=== PATIENT | male | born 1945 | race Caucasian/White ===

== ENCOUNTER 2021-08-29 09:57 | Inpatient (IN) | payer MEDICARE, SELFPAY ==
[2021-08-29] VITALS (8 sets, daily range): BP systolic 110–146; BP diastolic 51–87; PULSE 74–80; RESP 16–24; TEMP 35.8–36.5; O2SAT 95–100; BMI 29.8
--- NOTE | ~2021-08-29 | CT_ITS ---
EXAMINATION: CT abdomen pelvis wo con DATE: 08/29/2021 11:19 INDICATION: Diarrhea TECHNIQUE: Computed tomography (CT) of the abdomen and pelvis was performed without intravenous contr ast. The dose-length product (DLP) was 1395.18 mGy-cm. Automated exposure control and iterative recon struction technique were employed. COMPARISON: None FINDINGS: Minimal dependent atelectasis is present in the lung bases. There are minimal opacities of the right middle lobe. The heart size is normal. The liver, spleen, pancreas, gallbladder, and adrena l glands are normal. The kidneys are unremarkable. There is calcified atherosclerosis of the aorta an d many of the other arteries. No pathologically enlarged abdominal or pelvic lymph nodes are identifi ed. The appendix is normal. There is no free intraperitoneal gas or evidence of bowel obstruction. Th ere is severe thoracic and lumbar spondylosis. IMPRESSION: 1. No CT correlate for the patient's symptoms. 2. Minimal airspace opacities of the right middle lobe, likely pneumonia. Reviewed, dictated and finalized at location A. NET FINISHER
--- NOTE | ~2021-08-29 | MR_ITS ---
EXAMINATION: MR brain/brain stem wo con DATE: 08/31/2021 14:39 INDICATION: Anasarca correlate. Altered mental status. TECHNIQUE: Magnetic resonance imaging (MRI) of the brain and brainstem was performed without intraven ous contrast. Sequences included sagittal and axial T1-weighted SE, axial diffusion-weighted FS SE, a xial T2*-weighted GRE, axial T2-weighted FLAIR Propeller, and axial T2-weighted Propeller. Apparent d iffusion coefficient (ADC) maps were created. COMPARISON: CT dated 08/29/2021. FINDINGS: Mild generalized atrophy. There are scattered mild periventricular and subcortical white ma tter changes, most likely related to small vessel ischemic disease (microangiopathy). There are focal areas of increased signal on diffusion-weighted sequence with corresponding increase on ADC map, lik adelina a focal subacute or chronic infarct in the right parietal lobe and basal ganglia. No acute infarc tion is identified. No evidence for intracranial hemorrhage. There is a small chronic left frontal lo be infarction. No ventriculomegaly or midline shift. Basilar cisterns are patent. Orbits are symmetri c without disconjugate gaze. Small mucous retention cyst left maxillary sinus. IMPRESSION: 1. No acute intracranial abnormality. 2: Probable focal subacute/chronic infarctions of the right parietal lobe and basal ganglia. Chronic left frontal lobe focal infarction. 3: Mild chronic age-related findings. Reviewed, dictated and finalized at location A. RCYCLE SERVICE TECHNICIAN IMPRESSION: 1. No acute intracranial abnormality. 2: Probable focal subacute/chronic infarctions of the right parietal lobe and b nia ganglia. Chronic left frontal lobe focal infarction. 3: Mild chronic age-related findings.
--- NOTE | ~2021-08-29 | XR_ITS ---
EXAMINATION: XR chest 1V portable DATE: 08/30/2021 11:57 INDICATION: Crackles to auscultation of the chest TECHNIQUE: frontal view of the chest was obtained. COMPARISON: Chest radiograph and CT abdomen and pelvis dated 08/29/2021 FINDINGS: Eventration along the right hemidiaphragm. Unchanged mild opacities at the medial right lower lung zo ne which appears to correspond to small region of right middle lobe pneumonia on prior CT. No other a irspace opacities, pulmonary edema, pleural effusion or pneumothorax. The heart size is within normal limits for AP technique. Tortuous thoracic aorta. Oval 7 mm lucent lesion at the proximal right teddy ral diaphysis. IMPRESSION: 1. Unchanged right middle lobe pneumonia. 2. Indeterminate small lucent lesion at the proximal right humeral diaphysis. Differential would incl ude focal osteopenia, multiple myeloma or metastatic disease in the appropriate clinical setting. Reviewed, dictated and finalized at location A. AL CONTACT WORKER IMPRESSION: 1. Unchanged right middle lobe pneumonia. 2. Indeterminate small lucent lesion at the proximal right humeral diaphysis. D ifferential would include focal osteopenia, multiple myeloma or metastatic dise ase in the appropriate clinical setting.
--- NOTE | ~2021-08-29 | XR_ITS ---
EXAMINATION: XR chest 2V DATE: 08/29/2021 10:56 INDICATION: Shortness of breath and weakness TECHNIQUE: AP and lateral views of the chest are obtained. COMPARISON: 12/10/2014 FINDINGS: Scarring is noted in the lung apices. The lungs are free of acute opacities. There is no pl eural effusion or pneumothorax. The cardiomediastinal silhouette is normal. There is moderate thoraci c spondylosis. IMPRESSION: 1. No acute cardiopulmonary abnormality. Reviewed, dictated and finalized at location A. WAREHOUSE DEVELOPER
--- NOTE | ~2021-08-29 | CT_ITS ---
EXAMINATION: CT brain wo con INDICATION: Headache COMPARISON: None TECHNIQUE: Standard unenhanced head CT. The dose-length product (DLP) was 681.00 mGy-cm. The mA was a djusted according to patient size. Iterative reconstruction technique was employed. FINDINGS: There is no acute intraparenchymal hemorrhage. No evidence of mass lesion. No evidence of a cute infarction. There is mild periventricular and subcortical hypodensity probably related to small vessel ischemic disease. There is mild prominence of the sulci and ventricles related to cerebral atr ophy. Intracranial calcified cerebral atherosclerosis is noted. There are no extra-axial collections. There is no mass effect or midline shift. Changes in the globes are likely from ocular lens surgery. The visualized sinuses and mastoid air cells are well aerated. There are changes of right frontal cr aniotomy. IMPRESSION: 1. No acute intracranial abnormality. 2. Age related findings. Reviewed, dictated and finalized at location A. MUTUEL CASHIER
--- NOTE | 2021-08-29 10:15 | ECG_ITS ---
Measurements Intervals [place] Rate: 78 P: [place]: 0 QRS: -40 QRSD: 90 T: 39 QT: 338 QTc: 385 Interpretive Statements SINUS RHYTHM INFERIOR INFARCT, AGE INDETERMINATE BASELINE ARTIFACT- I, II, III, AVR, AVL, AVF, V1-V6 ABNORMAL ECG Electronically Signed On 08-29-2021 11:36:37 BIOLOGICAL SCIENCE TECHNICIAN FISH by Patrick Fitch D.O.
--- NOTE | 2021-08-29 10:31 | ED.WEAKNESS ---
HPI - Weakness General Chief complaint: Weakness <Vane Lemons PA-C - Last Filed: 08/29/21 12:48> Stated complaint: weakness <Vaen Lemons PA-C - Last Filed: 08/29/21 12:48> Time Seen by Provider: 08/29/21 10:15 <Vane Lemons PA-C - Last Filed: 08/29/21 12:48> Source: patient <BRITTANY Mccain Last Filed: 08/29/21 12:48> Mode of arrival: EMS <Vane Lemons PA-C - Last Filed: 08/29/21 12:48> Limitations: no limitations <Vane Lemons PA-C - Last Filed: 08/29/21 12:48> History of Present Illness HPI Narrative: This is a 76-year-old male that presents to the emergency department for generalized weakness. Ongoing over the last week. Also reports some diarrhea. Denies any localizing symptoms otherwise. Denies fever, chest pain, shortness of breath, cough, abdominal pain, vomiting, or dysuria. <Vane Lemons PA-C - Last Filed: 08/29/21 12:48> Related Data Allergies/Adverse reactions: Allergies Allergy/AdvReac Type Severity Reaction Status Date / Time amitriptyline Allergy Unknown Unknown Verified 08/21/21 08:52 <Vane Lemons PA-C - Last Filed: 08/29/21 12:48> Review of Systems Review of Systems: CONSTITUTIONAL: Denies fever CARDIOVASCULAR: Denies chest pain or edema. RESPIRATORY: Denies cough or dyspnea. GASTROINTESTINAL: Reports diarrhea. Denies abdominal pain, nausea, vomiting GENITOURINARY: Denies dysuria NEUROLOGIC: Reports generalized weakness. <Vane Lemons PA-C - Last Filed: 08/29/21 12:48> All systems reviewed & are unremarkable except as noted in HPI and below <Vane Lemons PA-C - Last Filed: 08/29/21 12:48> PMFSH Past Medical History Medical History: Medical History (Updated 08/29/21 @ 12:41 by Vane Lemons PA-C) Actinic keratoses Diabetes insipidus Hypopituitarism Hypothyroidism (acquired) Obesity (BMI 30.0-34.9) Seborrheic keratoses Tendonitis of both rotator cuffs <Vane Lemons PA-C - Last Filed: 08/29/21 12:48> Family History Family History: Family History Mother Acute myocardial infarction Father Family history of malignant neoplasm Family history of Parkinson's disease Other No family history of cardiovascular disease <Vane Lemons PA-C - Last Filed: 08/29/21 12:48> Social History Social History: Social History Smoking status: Former smoker Smoking end date: 10/05/70 <Vane Lemons PA-C - Last Filed: 08/29/21 12:48> Exam Narrative: GENERAL: Elderly, well-nourished, and in no acute distress. HEAD: Normocephalic, atraumatic. EYES: PERRLA and EOMI. ENT: Nares clear, no rhinorrhea or epistaxis. Mucous membranes dry. Oropharynx without tonsillar hypertrophy exudate or other lesions. Bilateral TMs pearly casper non-bulging NECK: Supple. No adenopathy or masses. CHEST: Clear to auscultation. No respiratory distress. No wheezes rales or rhonchi HEART: Regular rate and rhythm. No murmur heard. Normal peripheral pulses. ABDOMEN: Soft, nontender, nondistended, normal active bowel sounds. EXTREMITIES: Normal range of motion. No edema. SKIN: Warm, dry, no rash. NEURO: No focal deficits. Alert and oriented x3. PSYCH: Normal mood and affect <Vane Lemons PA-C - Last Filed: 08/29/21 12:48> Course INLAYER SILVER/PA Physician Supervision I did not see this patient but the care plan was discussed with me. I agree with the documentation as above <Jeet Victor MD - Last Filed: 08/29/21 13:26> Consultations Consultation #1: Spoke with hospitalist about patient and work-up who accepts admission <Vane Lemons PA-C - Last Filed: 08/29/21 12:48> Date: 08/29/21 <Vane Lemons PA-C - Last Filed: 08/29/21 12:48> Time: 12:00 <Vane Lemons PA-C - Last Filed: 08/29/21 12:48> Vital Signs Vital signs: Vital Si
[2021-08-29 10:42] LABS: Basophils Percent Auto 0.4 % (0.2-1.2); Eosinophils Absolute Auto 0.2 K/mm3 (0-0.3); Eosinophils Percent Auto 1.9 % (0-4.4); Hematocrit 43.2 % (42.0-52.0); Hemoglobin 14.8 g/dL (14.0-18.0); Immature Granulocyte Absolute 0.04 K/mm3 (0.00-0.031); Immature Granulocyte Percent A 0.4 % (0-0.5); Lymphocytes Absolute Auto 2.16 K/mm3 (0.9-3.2); Lymphocytes Percent Auto 21.1 % (18.3-44.2); Mean Corpuscular HGB Conc 34.3 g/dl (32-36); Mean Corpuscular Hemoglobin 32.7 pg (26-34); Mean Corpuscular Volume 95.4 fl (80-100); Mean Platelet Volume 9.8 fl (7.4-10.4); Monocytes Absolute Auto 0.6 K/mm3 (0.1-0.6); Monocytes Percent Auto 6.1 % (2.6-8.5); Neutrophils Absolute Auto 7.2 K/mm3 (1.3-6.7); Neutrophils Percent Auto 70.1 % (45.5-73.1); Platelet Count Result 190 k/mm3 (150-375); Red Blood Count 4.53 M/mm3 (4.6-6.20); White Blood Count 10.3 K/mm3 (4.5-10.0)
[2021-08-29 10:51] LABS: INR 1.1
[2021-08-29 10:52] LABS: Alanine Aminotransferase 17 U/L (4-50); Albumin Level 4.1 g/dL (3.5-5.1); Alkaline Phosphatase 64 U/L (38-126); Anion Gap 14 mmol/L (8-16); Aspartate Amino Transferase 27 U/L (17-59); Bilirubin,Total 1.5 mg/dL (0.2-1.3); Blood Urea Nitrogen 55 mg/dL (9-20); Calcium 8.8 mg/dL (8.4-10.2); Carbon Dioxide 20 mmol/L (22-30); Chloride 103 mmol/L (98-107); Creatine Kinase 372 U/L (55-170); Estimated Glomerular Filt Rate 25; Glucose 120 mg/dL (65-110); Lipase 56 U/L (23-300); Partial Thromboplastin Time 28.3 SECONDS (22.3-36.8); Potassium 3.5 mmol/L (3.4-5.0); Sodium 137 mmol/L (137-145)
[2021-08-29 11:52] LABS: Add Urine Microscopic? YES; Appearance Urine Cloudy (Clear); Bacteria Urine Trace /hpf; Bilirubin Urine Negative (Negative); Blood Urine 1+ (Negative); Color Urine Yellow (Yellow); Glucose Urine UA Negative (Negative); Ketones Urine Trace mg/dL (Negative); Leukocyte Esterase Ur Negative LEU/UL (Negative); Mucus Urine Rare /lpf; Nitrate Urine Negative (Negative); Protein Urine 1+ mg/dL (Negative); Specific Grav Ur 1.014 (1.001-1.035); Urobilinogen Urine Negative mg/dL (<2.0)
[2021-08-29] MEDS: SODIUM CHLORIDE 0.9% IV 1,000 ML 999 ML IV CONT (12:01)
[2021-08-29 12:34] LABS: Thyroid Stimulating Hormone Reflex < 0.015 uIU/mL (0.465-4.68)
[2021-08-29 13:05] LABS: Free T4 Free Thyroxine Reflex 0.66 ng/dL (0.78-2.19)
--- NOTE | 2021-08-29 15:00 | PM.IMHP ---
H&P: HPI History of Present Illness Date/Time: 08/29/21 15:00 Chief Complaint: Weakness. 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 He reports progressive weakness over the past 7 days or so with poor oral intake due to decreased appetite and occasional loose stools. Labs done on arrival to the emergency department showed a BUN and creatinine of 55 and 2.50 respectively (normal in September 2020). A CT of the abdomen and pelvis was done due to complaints of diarrhea and there were no CT findings to correlate with though symptoms however minimal opacities were noted in the right middle lobe and with further questioning he does mention having a slightly wet but nonproductive cough the last several days. He denies fever, cold and flu symptoms, sick contacts, and shortness of breath. No syncope or near syncope. Review of Systems Review of Systems: Twelve systems were reviewed. Except as documented all other systems were reviewed and are negative. [facility] Past Medical History Medical History Acquired hypothyroidism Diabetes insipidus Hypopituitarism Macular degeneration Mild cognitive impairment Surgical History Surgical History History of basal cell carcinoma excision (07/18/15) Right upper lip per Dr. Dobbins. History of surgical removal of pituitary gland (1994) For benign tumor. Family History Family History Mother Acute myocardial infarction Father Family history of malignant neoplasm Family history of Parkinson's disease Other No family history of cardiovascular disease Social History Social History (Updated 08/29/21 @ 21:46 by Alaina Chacon PA-C) Social History: Surrogate decision maker: Bria Smith, friend an ex-girlfriend, is reportedly his healthcare power of air hose coupler. Code status: Full code. Smoking status: Former smoker Smoking end date: 10/05/70 Alcohol intake: former Substance use: never Additional living arrangements comments: The patient lives in [place]. Additional occupation/education comments: Retired. Meds Home Medications and Allergies Home Medications Medication Instructions Recorded Confirmed Type prednisone 10 mg tablet 5 mg PO DAILY #45 tablet 01/31/21 08/29/21 Rx desmopressin 0.1 mg tablet 0.1 mg PO BID #180 tablet 08/09/21 08/29/21 Rx levothyroxine 88 mcg tablet See Rx Instructions .ROUTE 08/09/21 08/29/21 Rx .COMPLEX #90 tablet Allergies Allergy/AdvReac Type Severity Reaction Status Date / Time amitriptyline Allergy Unknown Unknown Verified 08/21/21 08:52 Vital Signs Vital Signs - 24 hr 08/29/21 09:55 08/29/21 11:00 08/29/21 12:31 Temperature 97 F L Pulse Rate 80 80 74 Respiratory Rate 24 H 20 21 H Blood Pressure 126/66 123/75 116/65 Pulse Oximetry 97 100 100 08/29/21 12:45 08/29/21 14:42 Temperature 97.7 F Pulse Rate 79 Respiratory Rate 22 H 24 H Blood Pressure 110/74 110/51 L Pulse Oximetry 95 100 Exam Narrative: General: Well-developed elderly male in the semi-[place] position in bed. Weight: 99.8 kg. BMI: 29.8. HEENT: Normocephalic, atraumatic. PERRL, EOMI. Sclerae anicteric. Tacky mucous membranes. Neck: Supple. No JVD. Respiratory: Respirations are even and nonlabored. Occasional rhonchi in the upper airways, clear with cough. Cardiovascular: Regular rate and rhythm with S1-S2. No murmur, rub, or gallop. Gastrointestinal: Abdomen is soft, nontender, and nondistended with positive bowel sounds. Skin: Warm and dry. No rash or lesions on limited exam. Extremities: No cyanosis, clubbing, or edema. Radial and pedal pulses intact. Neurological: Alert. C
--- NOTE | 2021-08-29 15:19 | ADMGEN ---
This patient, Sarkis Valle, was admitted to Medical Room 341-01. Patient/family oriented to hospital policies and general routines including ID bracelet, bed and alarms, visiting hours, pain management, procedures, bathroom and other care routines, personal items, smoking policy, room service/diet, and visiting hours. Information on how to activate the Rapid Response Team has been discussed. Patient/Family are encouraged to report perceived risks to care and to ask questions if they do not understand what they are told or what they should do.
--- NOTE | 2021-08-29 16:30 | PC.NURSE ---
Patient ex girlfriend Bria Pan [phone], called and stated she is the patient POA. I told her to please bring in paperwork I didn't see anything in the chart. She said she will bring paperwork up tomorrow.
[2021-08-29] MEDS: LACTATED RINGERS 1,000 ML 100 ML IV CONT (17:40)
[2021-08-29 18:00] LABS: Glucose Point of Care 100 mg/dl (65-105)
[2021-08-29 23:08] LABS: Anion Gap 11 mmol/L (8-16); Blood Urea Nitrogen 44 mg/dL (9-20); Calcium 8.6 mg/dL (8.4-10.2); Carbon Dioxide 20 mmol/L (22-30); Chloride 106 mmol/L (98-107); Creatine Kinase 334 U/L (55-170); Estimated CRCL calculation 38 ml/min; Estimated Glomerular Filt Rate 42; Glucose 101 mg/dL (65-110); Potassium 3.4 mmol/L (3.4-5.0); Sodium 137 mmol/L (137-145)
[2021-08-29] MEDS: DESMOPRESSIN ACETATE 0.1 MG TABLET PO (23:14)
[2021-08-30] MEDS: LACTATED RINGERS 1,000 ML 100 ML IV CONT (03:20)
[2021-08-30 03:46] VITALS: BP 147/71; PULSE 79; RESP 17; TEMP 36.1; O2SAT 96
[2021-08-30] MEDS: LEVOTHYROXINE SODIUM 88 MCG TABLET BY MOUTH (05:30)
[2021-08-30 06:28] LABS: Hematocrit 43.4 % (42.0-52.0); Hemoglobin 14.8 g/dL (14.0-18.0); Mean Corpuscular HGB Conc 34.1 g/dl (32-36); Mean Corpuscular Volume 93.9 fl (80-100); Platelet Count Result 200 k/mm3 (150-375); Red Blood Count 4.62 M/mm3 (4.6-6.20); White Blood Count 8.7 K/mm3 (4.5-10.0)
[2021-08-30 06:42] LABS: Alanine Aminotransferase 15 U/L (4-50); Albumin Level 3.9 g/dL (3.5-5.1); Alkaline Phosphatase 64 U/L (38-126); Anion Gap 12 mmol/L (8-16); Aspartate Amino Transferase 27 U/L (17-59); Bilirubin,Total 1.5 mg/dL (0.2-1.3); Blood Urea Nitrogen 36 mg/dL (9-20); Calcium 8.5 mg/dL (8.4-10.2); Carbon Dioxide 20 mmol/L (22-30); Chloride 107 mmol/L (98-107); Creatine Kinase 271 U/L (55-170); Estimated CRCL calculation 44 ml/min; Estimated Glomerular Filt Rate 49; Glucose 99 mg/dL (65-110); Magnesium 2.1 mg/dL (1.6-2.3); Potassium 3.3 mmol/L (3.4-5.0); Sodium 139 mmol/L (137-145)
[2021-08-30 07:16] LABS: Cortisol Random 1.94 ug/dL
[2021-08-30 08:00] VITALS: BP 115/78; BP 147/72; PULSE 112; PULSE 72
[2021-08-30] MEDS: ENOXAPARIN 30 MG/0.3 ML SYRINGE SUB-Q (09:29)
[2021-08-30] MEDS: DESMOPRESSIN ACETATE 0.1 MG TABLET PO ×2 (09:29→17:39)
[2021-08-30] MEDS: POTASSIUM CHLORIDE 20 MEQ TABLET PO (09:29)
[2021-08-30] MEDS: predniSONE 5 MG TABLET PO (09:30)
--- NOTE | 2021-08-30 10:39 | PCOTNOTE ---
Attempted to evaluate pt., pt. fatigued and unwilling to get up. Will follow-up with pt. later
[2021-08-30] MEDS: methylPREDNISolone SOD SUCC 125 MG VIAL 50 MG IV PUSH (10:51)
--- NOTE | 2021-08-30 11:44 | PM.IMPN ---
Progress Note: A&P Assessment and Plan (1) Acute kidney injury: Code(s): N17.9 - Acute kidney failure, unspecified Status: Acute Assessment and Plan: Improving with IV fluids -will continue for now but check chest x-ray as he does have some crackles -likely due to decreased oral intake. UA not suspicious for UTI -no need for renal ultrasound at this time (2) Dehydration: Code(s): E86.0 - Dehydration Status: Acute Assessment and Plan: As above -continue IV fluids (3) Pneumonia: Qualifiers: Laterality: right Lung location: middle lobe of lung Pneumonia type: due to unspecified organism Qualified Code(s): J18.9 - Pneumonia, unspecified organism Code(s): J18.9 - Pneumonia, unspecified organism Status: Acute Assessment and Plan: CT shows possible pneumonia in the right middle lobe. Patient has been coughing and has coarse breath sounds -continue azithromycin and ceftriaxone -check chest x-ray (4) Hypopituitarism: Code(s): E23.0 - Hypopituitarism Status: Acute Assessment and Plan: Patient has a known pituitary tumor which is chronic -he is on prednisone and desmopressin (5) Adrenal insufficiency: Code(s): E27.40 - Unspecified adrenocortical insufficiency Status: Acute Assessment and Plan: Likely secondary adrenal insufficiency -will do stress dose steroids due to infection. Cortisol low (6) Lethargy: Code(s): R53.83 - Other fatigue Status: Acute Assessment and Plan: Pt is more lethargic than normal--could be due to above -will check crp, lactic, phos, procalcitonin, abg and cxr to ensure no other pathology -COVID vaccinated x3, covid seems less likely. Meningitis less likely--no wbc or fever. some pain the neck but could be arthritis. no meningeal signs on exam. CVA seem less likely--CT head normal. Consider MRI if pt does not improve with current tx Time Spent With Patient Time with patient: 25 - 35 minutes Subjective Date/time seen: 08/30/21 11:44 Interval history: Pt is a 76-year-old male here for weakness. Patient was seen today and was very tired. He was able to answer all my questions appropriately but did not want to stay awake for the exam. He states that he feels very tired. He has not had much of a cough but is coughing a little bit. He denies nausea, vomiting, fevers, chills, chest pain or abdominal pain. He says he has not eaten very much because he has no appetite but would like to drink water. Review of Systems Review of Systems: All systems reviewed & are unremarkable except as noted in HPI and below Exam Narrative: General: Elderly patient resting comfortably in bed in no acute distress HEENT: normocephalic Neck: supple Neuro: Alert and oriented x4. Cranial nerves 2-12 intact. Left people seem to be slightly larger than the right but was reactive. Upper extremity and lower extremity strength 5/5 CV:RRR Resp: Coarse breath sounds throughout with crackles bilaterally. No conversational dyspnea Abd: Soft, non distended. No pain to palpation. Positive bowel sounds Extremities: No swelling, erythema, or pain to palpation. Objective Data Vital Signs Vital Signs: Vital Signs - 24 hr 08/29/21 12:31 08/29/21 12:45 08/29/21 14:42 Temperature 97.7 F Pulse Rate 74 79 Respiratory Rate 21 H 22 H 24 H Blood Pressure 116/65 110/74 110/51 L Pulse Oximetry 100 95 100 08/29/21 19:11 08/29/21 20:00 08/29/21 20:46 Temperature 97.7 F 97.7 F 96.4 F L Pulse Rate 76 76 80 Respiratory Rate 16 16 17 Blood Pressure 146/64 H 146/64 H 131/87 Pulse Oximetry 98 98 98 08/30/21 03:46 Temperature 97 F L Pulse Rate 79 Respiratory Rate 17 Blood Pressure 147/71 H Pulse Oximetry 96 Intake/Output Intake/Output: Intake & Output 08/27/21 08/28/21 08/29/21 08/30/21 23:59 23:59 23:59 23:59 Intake Total 1360 1408 Output Total
[2021-08-30 12:21] LABS: Phosphorus 3.9 mg/dL (2.5-4.5)
[2021-08-30 12:39] LABS: Alveolar/Arterial O2 Gradient 50.4 mmHg; Base Excess ABG -5.2 mEq/l (+/-2.0); Carboxyhemoglobin 0.6 % THb (0-2.0); Device ROOM AIR; Fractional Inspired Oxygen 21 %; HCO3 ABG 18.4 mEq/l (22.0-26.0); Modified Allen's Test Pass; Oxygen Saturation ABG 92.4 % (95.0-100.0); Oxyhemoglobin 91.4 % THb (90.0-100.0); PCO2 ABG 30.5 mmHg (35.0-45.0); PO2 ABG 62.8 mmHg (80.0-100.0); PO2 FiO2 Ratio Arterial Blood 2.99 %; Site Drawn LEFT RADIAL; pH ABG 7.398 (7.350-7.450)
[2021-08-30 12:55] LABS: Procalcitonin 0.9 ng/mL
[2021-08-30] MEDS: LACTATED RINGERS 1,000 ML 50 ML IV CONT (13:27)
[2021-08-30 13:36] LABS: CRP 22.8 mg/dL (<1.0)
[2021-08-30 15:00] VITALS: BP 96/62; PULSE 73
[2021-08-30 15:20] VITALS: BP 114/62; PULSE 76; RESP 20; TEMP 36.1; O2SAT 92
[2021-08-30 19:35] VITALS: BP 135/64; PULSE 69; RESP 24; TEMP 36.2; O2SAT 97
[2021-08-30 19:36] VITALS: BP 135/64; PULSE 69; PULSE 76; RESP 24; TEMP 36.2; O2SAT 97
[2021-08-31] VITALS (7 sets, daily range): BP systolic 124–150; BP diastolic 51–80; PULSE 65–97; RESP 18–20; TEMP 35.8–36.9; O2SAT 97–100
[2021-08-31] MEDS: LEVOTHYROXINE SODIUM 88 MCG TABLET BY MOUTH (05:32)
[2021-08-31 06:08] LABS: Hematocrit 38.6 % (42.0-52.0); Hemoglobin 13.4 g/dL (14.0-18.0); Mean Corpuscular HGB Conc 34.7 g/dl (32-36); Mean Corpuscular Hemoglobin 32.4 pg (26-34); Mean Corpuscular Volume 93.2 fl (80-100); Mean Platelet Volume 10.1 fl (7.4-10.4); Platelet Count Result 219 k/mm3 (150-375); Red Blood Count 4.14 M/mm3 (4.6-6.20); Red Cell Distribution Width 12.5 % (11.5-14.5); White Blood Count 12.5 K/mm3 (4.5-10.0)
[2021-08-31 06:30] LABS: Alanine Aminotransferase 18 U/L (4-50); Alkaline Phosphatase 74 U/L (38-126); Anion Gap 12 mmol/L (8-16); Aspartate Amino Transferase 26 U/L (17-59); Bilirubin,Total 0.8 mg/dL (0.2-1.3); Blood Urea Nitrogen 29 mg/dL (9-20); Calcium 8.9 mg/dL (8.4-10.2); Carbon Dioxide 21 mmol/L (22-30); Chloride 106 mmol/L (98-107); Estimated CRCL calculation 61 ml/min; Estimated Glomerular Filt Rate > 60; Glucose 171 mg/dL (65-110); Potassium 3.7 mmol/L (3.4-5.0); Sodium 139 mmol/L (137-145)
--- NOTE | 2021-08-31 07:34 | PM.IMPN ---
Progress Note: A&P Assessment and Plan (1) Acute kidney injury: Code(s): N17.9 - Acute kidney failure, unspecified Status: Acute Assessment and Plan: Resolved with IV fluids -Pt is still very thirsty and not eating much. Will continue fluids at rate of 50mls/hr until he eats -likely due to decreased oral intake. UA not suspicious for UTI -no need for renal ultrasound at this time (2) Dehydration: Code(s): E86.0 - Dehydration Status: Acute Assessment and Plan: As above -continue IV fluids (3) Pneumonia: Qualifiers: Laterality: right Lung location: middle lobe of lung Pneumonia type: due to unspecified organism Qualified Code(s): J18.9 - Pneumonia, unspecified organism Code(s): J18.9 - Pneumonia, unspecified organism Status: Acute Assessment and Plan: CT shows possible pneumonia in the right middle lobe. Patient has been coughing and has coarse breath sounds -continue azithromycin and ceftriaxone (4) Hypopituitarism: Code(s): E23.0 - Hypopituitarism Status: Acute Assessment and Plan: Patient has a known pituitary tumor which is chronic -he is on prednisone and desmopressin (5) Adrenal insufficiency: Code(s): E27.40 - Unspecified adrenocortical insufficiency Status: Acute Assessment and Plan: Likely secondary adrenal insufficiency -will do stress dose steroids due to infection. Cortisol low on admission but improved (6) Lethargy: Code(s): R53.83 - Other fatigue Status: Acute Assessment and Plan: Pt was more lethargic than kathy yesterday and could be due to above. He does more interactive today -will check brain MRI due to his anisocoria and slow movements. -COVID vaccinated x3, covid seems less likely. Meningitis less likely--no wbc or fever. some pain the neck but could be arthritis. no meningeal signs on exam. Time Spent With Patient Time with patient: 25 - 35 minutes Subjective Date/time seen: 08/31/21 07:34 Interval history: Pt is a 76-year-old male here for pneumonia. Patient was seen today early this morning and seems to be doing better. When asked if he feels stronger he told me he just woke up and did not know. He was more interactive today than he was yesterday. His only complaint is that he is thirsty. He says his cough is improving but he does still feel wheezy. He said he did not eat much yesterday but is going to try to eat more today. He denies nausea, vomiting, abdominal pain, diarrhea or constipation. He has not been out of bed. No chest pain. Review of Systems Review of Systems: All systems reviewed & are unremarkable except as noted in HPI and below Exam Narrative: General: Well developed well nourished patient in NAD HEENT: normocephalic, left pupil mildly bigger than the right but equal and reactive Neck: supple,, no pain to the cervical spine Neuro: Alert and oriented x4. Equal strength in the upper and lower extremities 5/5. Patient was slow to do [id number]. He was able to drink his on water but again, was slow CV:RRR Resp: More clear today with less crackles. He did have a good amount of wheezing which appeared to be upper airway Abd: Soft, non distended. No pain to palpation. Positive bowel sounds Extremities: No swelling, erythema, or pain to palpation. Objective Data Vital Signs Vital Signs: Vital Signs - 24 hr 08/30/21 08:00 08/30/21 15:00 08/30/21 15:20 Temperature 96.9 F L Pulse Rate 112 H 73 76 Respiratory Rate 20 Blood Pressure 115/78 96/62 L 114/62 Pulse Oximetry 92 08/30/21 19:35 08/30/21 19:36 08/31/21 04:03 Temperature 97.2 F L 97.2 F L 96.5 F L Pulse Rate 69 76 69 Respiratory Rate 24 H 24 H 18 Blood Pressure 135/64 135/64 141/70 H Pulse Oximetry 97 97 97 Intake/Output Intake/Output: Intake & Output 08/28/21 08/29/21 08/30/21 08/31/21 23:59 23:59 23:59 23:59
[2021-08-31] MEDS: predniSONE 10 MG TABLET 50 MG PO (08:06)
[2021-08-31] MEDS: DESMOPRESSIN ACETATE 0.1 MG TABLET PO ×2 (08:07→17:15)
[2021-08-31] MEDS: ENOXAPARIN 30 MG/0.3 ML SYRINGE SUB-Q (08:07)
[2021-08-31] MEDS: LACTATED RINGERS 1,000 ML 50 ML IV CONT (15:14)
[2021-09-01] VITALS (7 sets, daily range): BP systolic 138–162; BP diastolic 70–90; PULSE 59–63; RESP 16–20; TEMP 36.2–37.1; O2SAT 97–100
[2021-09-01 05:55] LABS: Basophils Percent Auto 0.1 % (0.2-1.2); Eosinophils Percent Auto 0.1 % (0-4.4); Hematocrit 34.1 % (42.0-52.0); Hemoglobin 11.7 g/dL (14.0-18.0); Immature Granulocyte Absolute 0.07 K/mm3 (0.00-0.031); Immature Granulocyte Percent A 0.5 % (0-0.5); Lymphocytes Absolute Auto 1.33 K/mm3 (0.9-3.2); Lymphocytes Percent Auto 9.5 % (18.3-44.2); Mean Corpuscular HGB Conc 34.3 g/dl (32-36); Mean Corpuscular Hemoglobin 32.4 pg (26-34); Mean Corpuscular Volume 94.5 fl (80-100); Mean Platelet Volume 9.9 fl (7.4-10.4); Monocytes Absolute Auto 0.7 K/mm3 (0.1-0.6); Monocytes Percent Auto 5.1 % (2.6-8.5); Neutrophils Absolute Auto 11.9 K/mm3 (1.3-6.7); Neutrophils Percent Auto 84.7 % (45.5-73.1); Platelet Count Result 224 k/mm3 (150-375); Red Blood Count 3.61 M/mm3 (4.6-6.20); Red Cell Distribution Width 12.4 % (11.5-14.5)
[2021-09-01] MEDS: LEVOTHYROXINE SODIUM 100 MCG TABLET BY MOUTH (06:01)
[2021-09-01 06:12] LABS: Anion Gap 7 mmol/L (8-16); Blood Urea Nitrogen 28 mg/dL (9-20); CRP 7.5 mg/dL (<1.0); Calcium 8.4 mg/dL (8.4-10.2); Carbon Dioxide 23 mmol/L (22-30); Chloride 104 mmol/L (98-107); Estimated CRCL calculation 75 ml/min; Estimated Glomerular Filt Rate > 60; Glucose 143 mg/dL (65-110); Potassium 3.7 mmol/L (3.4-5.0); Sodium 134 mmol/L (137-145)
[2021-09-01] MEDS: predniSONE 10 MG TABLET 50 MG PO (09:38)
[2021-09-01] MEDS: DESMOPRESSIN ACETATE 0.1 MG TABLET PO ×2 (09:38→17:20)
[2021-09-01] MEDS: ASPIRIN 81 MG ENTERIC TABLET PO (09:38)
[2021-09-01] MEDS: ENOXAPARIN 30 MG/0.3 ML SYRINGE SUB-Q (09:39)
--- NOTE | 2021-09-01 11:35 | PM.IMPN ---
Progress Note: A&P Assessment and Plan (1) Acute kidney injury: Code(s): N17.9 - Acute kidney failure, unspecified Status: Acute Assessment and Plan: Improving with IV fluids -Pt appetite has improved, will continue 50mls/hr throughout today and stop it tonight -likely due to decreased oral intake. UA not suspicious for UTI -no need for renal ultrasound at this time (2) Dehydration: Code(s): E86.0 - Dehydration Status: Acute Assessment and Plan: As above -continue IV fluids (3) Pneumonia: Qualifiers: Laterality: right Lung location: middle lobe of lung Pneumonia type: due to unspecified organism Qualified Code(s): J18.9 - Pneumonia, unspecified organism Code(s): J18.9 - Pneumonia, unspecified organism Status: Acute Assessment and Plan: CT shows pneumonia in the right middle lobe. 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 Cortisol low on admission but improved (6) Lethargy: Code(s): R53.83 - Other fatigue Status: Acute Assessment and Plan: Improving by the day -MRI shows chronic strokes pt was unaware of. Will start aspirin. -COVID vaccinated x3, covid seems less likely. Meningitis less likely--no wbc or fever. some pain the neck but could be arthritis. no meningeal signs on exam. Subjective Date/time seen: 09/01/21 11:35 Interval history: Pt is a 76-year-old male here for pneumonia. Patient was seen today and states he is doing better. He says although he feels much weaker than he usually does at baseline, today is the best day he has had in a couple days. He continues to cough but does not really feel short of breath. His appetite is better and he has been more awake. He worked with physical therapy today and was out of bed with them. No chest pain, nausea, vomiting, abdominal pain or leg swelling. He states he was unaware of a stroke in the past. Exam Narrative: General: Well developed well nourished patient in NAD HEENT: normocephalic, left pupil mildly bigger than the right but equal and reactive Neck: supple, no pain to the cervical spine Neuro: Alert and oriented x4. Equal strength in the upper and lower extremities 5/5. Patient was slow to do [id number] but able to do so. CV:RRR Resp: More clear today with less crackles. Slight upper airway wheezing which is improved since yesterday. Abd: Soft, non distended. No pain to palpation. Positive bowel sounds Extremities: No swelling, erythema, or pain to palpation. Objective Data Vital Signs Vital Signs: Vital Signs - 24 hr 08/31/21 14:00 08/31/21 17:20 08/31/21 17:22 Temperature 98.5 F Pulse Rate 78 65 67 Respiratory Rate 20 Blood Pressure 142/80 H 147/65 H 149/61 H Pulse Oximetry 98 08/31/21 17:44 08/31/21 20:00 08/31/21 21:03 Temperature 97.3 F L Pulse Rate 74 97 97 Respiratory Rate 20 20 Blood Pressure 150/69 H 124/51 L Pulse Oximetry 100 100 09/01/21 06:00 Temperature 98.8 F Pulse Rate 61 Respiratory Rate 16 Blood Pressure 140/71 Pulse Oximetry 97 Intake/Output Intake/Output: Intake & Output 08/29/21 08/30/21 08/31/21 09/01/21 23:59 23:59 23:59 23:59 Intake Total 1360 2500 1989 [id number] Output Total 700 675 Balance 660 2500 1989 4949 Meds/Results Medications: Active Medications Generic Name Dose R
[2021-09-01] MEDS: LACTATED RINGERS 1,000 ML 50 ML IV CONT (16:22)
[2021-09-02 05:36] VITALS: BP 145/63; PULSE 55; RESP 18; TEMP 36.1; O2SAT 96
[2021-09-02 06:06] LABS: Basophils Percent Auto 0.2 % (0.2-1.2); Eosinophils Percent Auto 0.4 % (0-4.4); Hematocrit 36.2 % (42.0-52.0); Hemoglobin 12.5 g/dL (14.0-18.0); Immature Granulocyte Absolute 0.13 K/mm3 (0.00-0.031); Immature Granulocyte Percent A 1.3 % (0-0.5); Lymphocytes Absolute Auto 2.03 K/mm3 (0.9-3.2); Lymphocytes Percent Auto 20.4 % (18.3-44.2); Mean Corpuscular HGB Conc 34.5 g/dl (32-36); Mean Corpuscular Hemoglobin 32.6 pg (26-34); Mean Corpuscular Volume 94.5 fl (80-100); Mean Platelet Volume 10.1 fl (7.4-10.4); Monocytes Absolute Auto 0.6 K/mm3 (0.1-0.6); Monocytes Percent Auto 5.6 % (2.6-8.5); Neutrophils Absolute Auto 7.2 K/mm3 (1.3-6.7); Neutrophils Percent Auto 72.1 % (45.5-73.1); Platelet Count Result 229 k/mm3 (150-375); Red Blood Count 3.83 M/mm3 (4.6-6.20); Red Cell Distribution Width 12.4 % (11.5-14.5); White Blood Count 9.9 K/mm3 (4.5-10.0)
[2021-09-02 06:19] LABS: Anion Gap 10 mmol/L (8-16); Blood Urea Nitrogen 25 mg/dL (9-20); CRP 3.8 mg/dL (<1.0); Calcium 8.5 mg/dL (8.4-10.2); Carbon Dioxide 21 mmol/L (22-30); Chloride 102 mmol/L (98-107); Estimated CRCL calculation 84 ml/min; Estimated Glomerular Filt Rate > 60; Glucose 126 mg/dL (65-110); Potassium 3.9 mmol/L (3.4-5.0); Sodium 133 mmol/L (137-145)
[2021-09-02] MEDS: LEVOTHYROXINE SODIUM 100 MCG TABLET BY MOUTH (06:23)
[2021-09-02 08:00] VITALS: PULSE 55; RESP 18; O2SAT 96
[2021-09-02 08:34] VITALS: BP 132/57; BP 140/57
[2021-09-02] MEDS: predniSONE 10 MG TABLET 50 MG PO (08:44)
[2021-09-02] MEDS: ASPIRIN 81 MG ENTERIC TABLET PO (08:45)
[2021-09-02] MEDS: DESMOPRESSIN ACETATE 0.1 MG TABLET PO ×2 (08:45→19:17)
[2021-09-02] MEDS: ENOXAPARIN 30 MG/0.3 ML SYRINGE SUB-Q (08:46)
--- NOTE | 2021-09-02 12:29 | PM.IMPN ---
Progress Note: A&P Assessment and Plan (1) Pneumonia: Qualifiers: Laterality: right Lung location: middle lobe of lung Pneumonia type: due to unspecified organism Qualified Code(s): J18.9 - Pneumonia, unspecified organism Code(s): J18.9 - Pneumonia, unspecified organism Status: Acute Assessment and Plan: CT shows pneumonia in the right middle lobe. Patient has been coughing and has coarse breath sounds -continue azithromycin and ceftriaxone (2) Generalized weakness: Code(s): R53.1 - Weakness Status: Acute Assessment and Plan: Patient states he feels pretty weak since his illness but is getting better every day. He really does not want to go to rehab if he does not have too. He says he walked with a walker today although he does not usually walk with 1 at home. We will see how he does with physical therapy. The plan is to discharge tomorrow if he feels stronger and is stable. Hopefully he can go home (3) Acute kidney injury: Code(s): N17.9 - Acute kidney failure, unspecified Status: Acute Assessment and Plan: Resolved with IV fluids -IV fluids were stopped and the patient is -likely due to decreased oral intake. 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 Cortisol low on admission but improved (7) Lethargy: Code(s): R53.83 - Other fatigue Status: Acute Assessment and Plan: Resolved -MRI shows chronic strokes pt was unaware of. Will start aspirin. -COVID vaccinated x3, covid seems less likely. Meningitis less likely--no wbc or fever. some pain the neck but could be arthritis. no meningeal signs on exam. (8) Abnormal x-ray of humerus: Code(s): R93.6 - Abnormal findings on diagnostic imaging of limbs Status: Acute Assessment and Plan: xray shows Indeterminate small lucent lesion at the proximal right humeral diaphysis. Differential would include focal osteopenia, multiple myeloma or metastatic disease in the appropriate clinical setting. -add PSA and vit D to the morning labs -total protein normal (MM less likely) -f/u with pcp, may consider bone scan outpt Subjective Date/time seen: 09/02/21 12:29 Interval history: Pt is a 76-year-old male here for pneumonia. Patient was seen today and was sitting up in the chair eating lunch. He states that he is finally getting up sputum and is feeling better. He says he feels weak but he has more acute. He was able to walk with a walker today. He said he does not usually use assistive devices he does have a walker at home that he could use temporarily. He has no nausea, vomiting, fevers, chills, chest pain or leg swelling. Exam Narrative: General: Well developed well nourished patient in NAD HEENT: normocephalic, left pupil mildly bigger than the right but equal and reactive Neck: supple, no pain to the cervical spine Neuro: Alert and oriented x4. Equal strength in the upper and lower extremities 5/5. CV:RRR Resp: More clear today with less crackles. No further upper airway wheezing. Abd: Soft, non distended. No pain to palpation. Positive bowel sounds Extremities: No swelling, erythema, or pain to palpation. Objective Data Vital Signs Vital
[2021-09-02 14:27] VITALS: BP 145/95; PULSE 54; RESP 16; TEMP 35.9; O2SAT 98
[2021-09-02] MEDS: polyethylene glycoL 3350 17 GM POWD.PACK PO (14:38)
[2021-09-02 19:24] VITALS: BP 152/63; PULSE 48; RESP 18; TEMP 36.7; O2SAT 97
[2021-09-03 04:25] VITALS: BP 153/63; PULSE 55; RESP 18; TEMP 36.8; O2SAT 98
[2021-09-03 05:52] LABS: Basophils Percent Auto 0.2 % (0.2-1.2); Eosinophils Absolute Auto 0.1 K/mm3 (0-0.3); Eosinophils Percent Auto 0.6 % (0-4.4); Hematocrit 33.8 % (42.0-52.0); Hemoglobin 11.9 g/dL (14.0-18.0); Immature Granulocyte Percent A 2.1 % (0-0.5); Lymphocytes Percent Auto 24.5 % (18.3-44.2); Mean Corpuscular HGB Conc 35.2 g/dl (32-36); Mean Corpuscular Hemoglobin 32.7 pg (26-34); Mean Corpuscular Volume 92.9 fl (80-100); Mean Platelet Volume 9.6 fl (7.4-10.4); Monocytes Absolute Auto 0.6 K/mm3 (0.1-0.6); Neutrophils Absolute Auto 6.2 K/mm3 (1.3-6.7); Neutrophils Percent Auto 66.6 % (45.5-73.1); Platelet Count Result 212 k/mm3 (150-375); Red Blood Count 3.64 M/mm3 (4.6-6.20); White Blood Count 9.4 K/mm3 (4.5-10.0)
[2021-09-03 05:54] LABS: Anion Gap 9 mmol/L (8-16); Blood Urea Nitrogen 24 mg/dL (9-20); Calcium 8.5 mg/dL (8.4-10.2); Carbon Dioxide 23 mmol/L (22-30); Chloride 102 mmol/L (98-107); Estimated CRCL calculation 84 ml/min; Estimated Glomerular Filt Rate > 60; Glucose 108 mg/dL (65-110); Potassium 3.7 mmol/L (3.4-5.0); Sodium 134 mmol/L (137-145)
[2021-09-03] MEDS: LEVOTHYROXINE SODIUM 100 MCG TABLET BY MOUTH (06:08)
[2021-09-03 06:57] LABS: Vitamin D 25 Hydroxy 36.8 ng/mL
[2021-09-03] MEDS: ASPIRIN 81 MG ENTERIC TABLET PO (08:28)
[2021-09-03] MEDS: predniSONE 10 MG TABLET 50 MG PO (08:28)
[2021-09-03] MEDS: ENOXAPARIN 30 MG/0.3 ML SYRINGE SUB-Q (08:28)
[2021-09-03] MEDS: DESMOPRESSIN ACETATE 0.1 MG TABLET PO ×2 (08:28→16:51)
[2021-09-03] MEDS: polyethylene glycoL 3350 17 GM POWD.PACK PO (08:28)
--- NOTE | 2021-09-03 10:27 | PCOTNOTE ---
Attempted to see at this time, Patient was sleeping, and requested I come back a little later, he did not sleep well last night. Patient was very motivated yesterday and will try back at a later time.
--- NOTE | 2021-09-03 12:11 | PM.IMPN ---
Progress Note: A&P Assessment and Plan (1) Pneumonia: Qualifiers: Laterality: right Lung location: middle lobe of lung Pneumonia type: due to unspecified organism Qualified Code(s): J18.9 - Pneumonia, unspecified organism Code(s): J18.9 - Pneumonia, unspecified organism Status: Acute Assessment and Plan: Improving. CT shows pneumonia in the right middle lobe. -continue azithromycin and ceftriaxone (2) Generalized weakness: Code(s): R53.1 - Weakness Status: Acute Assessment and Plan: Patient continues to be weak but improves every day. Today he was able to walk with physical therapy but needed assistance getting out of bed and doing other tasks. I spoke with therapy extensively about the plan of care. He is on the border of being able to go home or going to a rehab facility. I think another day in hospital would benefit him so we can get him home instead of an SNF. They are going to change his treatment where he gets therapy more often while here. Pt states he is feeling better and wants to go home and not to SNF. (3) Acute kidney injury: Code(s): N17.9 - Acute kidney failure, unspecified Status: Acute Assessment and Plan: Resolved with IV fluids -IV fluids were stopped and the patient is eating and drinking -likely due to decreased oral intake. 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 Cortisol low on admission but improved (7) Lethargy: Code(s): R53.83 - Other fatigue Status: Acute Assessment and Plan: Resolved -MRI shows chronic strokes pt was unaware of. Will start aspirin. -COVID vaccinated x3, covid seems less likely. Meningitis less likely--no wbc or fever. some pain the neck but could be arthritis. no meningeal signs on exam. (8) Abnormal x-ray of humerus: Code(s): R93.6 - Abnormal findings on diagnostic imaging of limbs Status: Acute Assessment and Plan: xray shows Indeterminate small lucent lesion at the proximal right humeral diaphysis. Differential would include focal osteopenia, multiple myeloma or metastatic disease in the appropriate clinical setting. -vitamin-D normal, PSA pending. Colonoscopy in the last 10 years which was normal according to the patient. -total protein normal (MM less likely) -f/u with pcp, may consider bone scan outpt Subjective Date/time seen: 09/03/21 12:11 Interval history: Pt is a 76-year-old male here for pneumonia. Patient was seen today and states he is doing better. He continues to have a cough but it is not distressing to him. It is not productive and he has no shortness of breath with this. He denies chest pain, diarrhea, constipation, nausea or vomiting. He is eating and drinking okay. He worked with physical therapy today and felt stronger but still does not feel strong enough. He says he usually walks without an assisted device but does have a walker at home that he could use. He has been up to the chair with all of his meals and walking to the bathroom when he has to go. He has a history of colonoscopy about 8 years ago that was normal. No history of prostate
[2021-09-03 14:00] VITALS: BP 141/76; PULSE 56; RESP 18; TEMP 36.6; O2SAT 97
[2021-09-03 19:36] VITALS: BP 149/63; PULSE 71; RESP 17; TEMP 36; O2SAT 98
[2021-09-03 20:00] VITALS: BP 147/73; PULSE 49; RESP 17; TEMP 36.6; O2SAT 96
[2021-09-03 20:30] VITALS: BP 139/69; BP 167/73
[2021-09-04 02:59] VITALS: BP 164/54; PULSE 49; RESP 17; TEMP 36.6; O2SAT 97
[2021-09-04] MEDS: LEVOTHYROXINE SODIUM 100 MCG TABLET BY MOUTH (05:52)
[2021-09-04] MEDS: predniSONE 10 MG TABLET 50 MG PO (08:27)
[2021-09-04] MEDS: DESMOPRESSIN ACETATE 0.1 MG TABLET PO (08:27)
[2021-09-04] MEDS: ASPIRIN 81 MG ENTERIC TABLET PO (08:27)
[2021-09-04] MEDS: ENOXAPARIN 30 MG/0.3 ML SYRINGE SUB-Q (08:28)
[2021-09-04] MEDS: polyethylene glycoL 3350 17 GM POWD.PACK PO (08:28)
[2021-09-04 08:45] VITALS: BP 151/66; BP 159/85; BP 165/86
--- NOTE | 2021-09-04 09:28 | PM.DS ---
DS: Admitting Diagnosis Discharge Date 09/04/21 Admitting Diagnosis pna DS: Discharge Diagnosis Discharge Diagnosis (1) Pneumonia: Qualifiers: Laterality: right Lung location: middle lobe of lung Pneumonia type: due to unspecified organism Qualified Code(s): J18.9 - Pneumonia, unspecified organism Code(s): J18.9 - Pneumonia, unspecified organism Status: Acute Assessment and Plan: Improving. CT shows pneumonia in the right middle lobe. -finished azithromycin and got ceftriaxone while he was here. He will be discharged on cefdinir. (2) Generalized weakness: Code(s): R53.1 - Weakness Status: Acute Assessment and Plan: Patient continues to be weak but improves every day. He was able to get out of bed and walk to the chair with a walker today for me but still says he feels weak and would like to continue with rehab at a facility (3) Acute kidney injury: Code(s): N17.9 - Acute kidney failure, unspecified Status: Acute Assessment and Plan: Resolved with IV fluids -likely due to decreased oral intake. 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 Cortisol low on admission but improved (7) Lethargy: Code(s): R53.83 - Other fatigue Status: Acute Assessment and Plan: Resolved -MRI shows chronic strokes pt was unaware of. Will start aspirin and blood pressure medications. (8) Abnormal x-ray of humerus: Code(s): R93.6 - Abnormal findings on diagnostic imaging of limbs Status: Acute Assessment and Plan: xray shows Indeterminate small lucent lesion at the proximal right humeral diaphysis. Differential would include focal osteopenia, multiple myeloma or metastatic disease in the appropriate clinical setting. -vitamin-D normal, PSA pending. Colonoscopy in the last 10 years which was normal according to the patient. -total protein normal (MM less likely) -spoke with pcp, may consider bone scan outpt (9) HTN (hypertension), benign: Code(s): I10 - Essential (primary) hypertension Status: Acute Assessment and Plan: Patient's blood pressure has been elevated consistently throughout his stay -he has evidence of an old stroke on MRI -he says his blood pressure usually runs 150 systolic and thought that was normal -discussed starting amlodipine and monitoring for leg swelling. He should follow up with his primary care physician for further adjustments. He agreed DS: Summary Hospital Course Hospital Course: DOS 09/04/21 Patient is a 76-year-old male who presented emergency room for generalized weakness found to have pneumonia and DAWIT. Vitals in the ER were temperature 36.1? C, pulse 80, respiratory rate 24, blood pressure 126/66, pulse ox on 97 on room air. CBC showed initial leukocytosis 10.3, hemoglobin 14.8, hematocrit 43.2, platelets 190. Initial creatinine 2.5 with BUN of 55. Patient was admitted to the hospitalist service and started on IV fluids antibiotics. He was found to have a low T4 and low cortisol. He has a history of pituitary tumor removal so his levothyroxine was increased. He was also placed on stress dose steroids. He improved greatly with this treatment. Christiano
[2021-09-04 10:35] LABS: EDCOVIDSCREEN Negative (Negative)
[2021-09-05 17:35] LABS: PSA, Free 0.05 ng/mL; PSA, Total 2.7 ng/mL (<=4.0); Percent Free Prostate Spec Ag 2 % (>25)
[2021-09-05 18:09] LABS: Pneumococcal Antigen Urine Not Detected (Not Detected)
[2021-09-05 19:36] LABS: Legionella pneumophila Ag Ur Not Detected (Not Detected)
== END 2021-09-04 12:54 | DRG 194 ==
LOC: ANHED 12:43 → ANH3MED 12:45
PROVIDERS: Physician Assistant; Admitting Provider Family Medicine; Emergency Provider Emergency Medicine; PCP Family Medicine; Visit Provider Internal Medicine
DX: J18.9 Pneumonia, unspecified organism (principal); N17.9 Acute kidney failure, unspecified; E27.49 Other adrenocortical insufficiency; Z20.822 Contact with and (suspected) exposure to COVID-19; E86.0 Dehydration; E03.9 Hypothyroidism, unspecified; E89.3 Postprocedural hypopituitarism; Z86.018 Personal history of other benign neoplasm; H54.7 Unspecified visual loss; H35.30 Unspecified macular degeneration; G31.84 Mild cognitive impairment of uncertain or unknown etiology; R93.6 Abnormal findings on diagnostic imaging of limbs; R53.83 Other fatigue; Z79.899 Other long term (current) drug therapy; Z86.73 Personal history of transient ischemic attack (TIA), and cerebral infarction without residual deficits; Z87.891 Personal history of nicotine dependence
CPT/HCPCS: 36415; 36600; 51701; 70450; 70551; 71045; 71046; 74176; 80048; 80053; 80076; 81001; 82306; 82375; 82533; 82550; 82805; 82948; 83050; 83605; 83690; 83735; 84100; 84145; 84153; 84154; 84439; 84443; 85025; 85027; 85610; 85730; 86140; 87040; 87426; 87449; 87899; 93005; 96361; 96365; 96367; 96372; 96375; 97110; 97162; 97166; 97530; 97535; 99285; A9270; C9803; G0378; J0456; J0696; J1650; J2930; J7030; J7120; J7512

== ENCOUNTER 2021-10-16 09:46 | Outpatient (CLI) | payer MEDICARE, SELFPAY ==
--- NOTE | ~2021-10-16 | NM_ITS ---
EXAMINATION: NM bone scan whole body DATE: 10/17/2021 08:35 INDICATION: Abnormal finding on diagnostic imaging of the limbs. TECHNIQUE: 24.9 mCi Tc-99m HDP was administered intravenously. Delayed whole-body scintigrams were o btained. COMPARISON: Chest radiograph dated 08/30/[address] abdomen and pelvis dated 08/29/2021 FINDINGS: Likely degenerative joint centered uptake at the radial aspect of the bilateral carpi and to a lesser degree at the left sternoclavicular articulation and the bilateral elbows and knees. No abnormal foc us of increased uptake in the proximal right humeral diaphysis of the region of concern. No other zack picious foci of abnormal bone uptake. IMPRESSION: 1. Typical distribution of degenerative joint centered increased uptake. No other suspicious foci of abnormal uptake including no correlate for the lytic lesions of concern at the proximal right humerus . Of note bone scan can be insensitive for both multiple myeloma and lytic metastases. Reviewed, dictated and finalized at location A. [facility]ER IMPRESSION: 1. Typical distribution of degenerative joint centered increased uptake. No oth er suspicious foci of abnormal uptake including no correlate for the lytic lesi ons of concern at the proximal right humerus. Of note bone scan can be insensit robert for both multiple myeloma and lytic metastases.
== END 2021-10-16 09:47 | disposition home or self-care (01) ==
LOC: ANHIMG 09:51
PROVIDERS: PCP Family Medicine; Visit Provider Family Medicine
DX: M99.87 Other biomechanical lesions of upper extremity (principal); R93.6 Abnormal findings on diagnostic imaging of limbs
CPT/HCPCS: 78306; A9561